=== PATIENT | male | born 1960 ===

== ENCOUNTER 2024-08-22 12:30 | Outpatient (CLI) | payer BC | END 2024-08-22 12:31 | disposition home or self-care (01) | LOC: PET 12:30 | PROVIDERS: ATTEND Urology | DX: C61 Malignant neoplasm of prostate (principal); N40.1 Benign prostatic hyperplasia with lower urinary tract symptoms; R35.0 Frequency of micturition; R97.20 Elevated prostate specific antigen [PSA] | CPT/HCPCS: 78815; A9552; A9595 ==